=== PATIENT | male | born 1995 | race Caucasian/White ===

== ENCOUNTER 2018-10-16 19:06 | Emergency (ER) | payer SELFPAY ==
[~2018-10-16] VITALS: Ht 162.6 cm; Wt 52.7 kg
[2018-10-16 19:18] VITALS: BP 96/52
--- NOTE | 2018-10-16 19:22 | NUR ---
Patient ambulated to bed 4 with family. RN evaluating patient at bedside.
--- NOTE | 2018-10-16 19:30 | NUR ---
PT BIB MOTHER FOR ABD PAIN X5 DAYS. PT REPORTS ABD PAIN WITH N/V. PT REPORTS PAIN AT 8/10 IN EPIGASTRIC REGION. ABD FLAT, NON-TENDER, AND BOWEL SOUNDS ACTIVE X4 QUADRANTS. PT STATES HE HAD A FEVER ON FRIDAY, BUT COULD NOT RECALL THE EXACT TEMPERATURE, PT IS A FEBRILE NOW. PT DENIES COUGH. ER MD NOTIFIED OF PT CONDITION. SAFETY PRECAUTIONS IN PLACE, WILL CONTINUE TO MONITOR.
--- NOTE | 2018-10-16 19:31 | NUR ---
Dr. Che evaluating patient at bedside.
[2018-10-16] MEDS ORDERED: ONDANSETRON 4 MG/2 ML VIAL IVP ONE (19:40)
[2018-10-16] MEDS ORDERED: NACL 0.9% 1,000 ML IV ONE (19:40)
[2018-10-16] MEDS ORDERED: KETOROLAC 30 MG/ML VIAL IVP ONE (19:40)
--- NOTE | 2018-10-16 20:04 | NUR ---
Patient taken to XRAY via wheelchair by tech.
--- NOTE | 2018-10-16 20:41 | NUR ---
PT IS RESTING IN BED, MOM IS AT BEDSIDE. PT STATES THAT HE HAS NO PAIN AT THIS TIME. SAFETY PRECUAITONS IN PLACE. WILL CONTINUE TO MONITOR.
[2018-10-16 20:58] LABS: BASOPHILS % (AUTO) 0.3 % (0.0-2.0); EOSINOPHILS % (AUTO) 0.4 % (0.0-4.0); HEMATOCRIT 37.3 % (36-52); HEMOGLOBIN 12.6 g/dL (12.0-18.0); LYMPHOCYTES # (AUTO) 1.5 K/uL (2.0-11.5); MEAN CORPUSCULAR HEMOGLOBIN 29 pg (27-31); MEAN CORPUSCULAR HGB CONC 34 g/dL (33-37); MEAN CORPUSCULAR VOLUME 86.4 fL (80-94); MONOCYTES # (AUTO) 0.6 K/uL (0.8-1.0); MONOCYTES % (AUTO) 11.9 % (1.7-9.3); NEUTROPHILS % (AUTO) 57.4 % (42.2-75.2); PLATELET COUNT (AUTO) 183 K/uL (140-450); RED BLOOD CELL COUNT(AUTO) 4.32 MIL/uL (4.20-6.10); RED CELL DISTRIBUTION WIDTH 12.8 % (11.6-13.7); WHITE BLOOD COUNT (AUTO) 5.1 K/uL (4.8-10.8)
[2018-10-16 21:17] LABS: ALBUMIN 3.1 g/dL (3.4-5.0); ANION GAP 8.8 (8-16); CARBON DIOXIDE 29.8 mmol/L (21-32); POTASSIUM 3.6 mmol/L (3.5-5.1); TOTAL BILIRUBIN 0.6 mg/dL (0.0-1.0)
[2018-10-16 21:25] LABS: APPEARANCE,URINE CLEAR (CLEAR); BILIRUBIN,URINE NEGATIVE (NEGATIVE); BLOOD, URINE NEGATIVE (NEGATIVE); COLOR,URINE YELLOW (YELLOW); LEUKOCYTE ESTERASE ,URINE NEGATIVE (NEGATIVE); NITRITE, URINE NEGATIVE (NEGATIVE); UGLUCOSE NEGATIVE (NEGATIVE)
[2018-10-16 22:25] VITALS: BP 100/52
--- NOTE | 2018-10-16 22:25 | NUR ---
Patient discharged with v/s stable. Written and verbal after care instructions given and explained. Patient alert, oriented and verbalized understanding of instructions. Ambulatory with steady gait. All questions addressed prior to discharge. ID band removed. Patient advised to follow up with PMD. Rx of TRAMADOL AND ZOFRAN given. Patient educated on indication of medication including possible reaction and side effects. Opportunity to ask questions provided and answered.
[2018-10-17 00:25] LABS: RBC,URINE 0-5 (RARE) /HPF (0-5); WBC,URINE 0-5 (RARE) /HPF (0-5)
== END 2018-10-16 22:25 | disposition home or self-care (01) ==
LOC: MED 19:06
DX: A08.4 Viral intestinal infection, unspecified (principal)
CPT/HCPCS: 36415; 74022; 80053; 81001; 81025; 85025; 87086; 96361; 96374; 96375; 99284; J1885; J2405; J7030

== ENCOUNTER 2019-04-11 19:49 | Emergency (ER) | payer MEDICAID ==
[~2019-04-11] VITALS: Ht 162.6 cm; Wt 58.1 kg
[2019-04-11 19:50] VITALS: BP 120/74
--- NOTE | 2019-04-11 19:52 | NUR ---
TO LOBBY A/W BED AMBULATORY
--- NOTE | 2019-04-11 20:32 | NUR ---
PATIENT AMBULATED TO ER BED 4.
--- NOTE | 2019-04-11 20:54 | NUR ---
PT PRESENTS TO ED WITH C/O RT INGROWN TOE NAIL FOR 2-3 DAYS. PT STATES PAIN IS 10/10 AT THIS TIME. PENDING ER MD EVALUATION.
[2019-04-11 21:14] VITALS: BP 120/74
== END 2019-04-11 21:14 | disposition home or self-care (01) ==
LOC: MED 19:49
DX: L60.0 Ingrowing nail (principal)
CPT/HCPCS: 99282